=== PATIENT | female | born 2000 | race Caucasian/White ===

== ENCOUNTER 2021-03-09 17:49 | Emergency (ER) | payer BC ==
[2021-03-09] MEDS ORDERED: Ketorolac Tromethamine 30 MG/ML VIAL ONE (18:15)
[2021-03-09] MEDS ORDERED: Famotidine/PF 20 mg/2ml Vial ONE (18:15)
[2021-03-09] MEDS ORDERED: Ondansetron PF 4 MG/2 ML Vial ONE (18:15)
[2021-03-09 19:29] LABS: BHCG - Serum Negative (NEGATIVE); Pregs Control Background? CLEAR/WHITE (CLR/WHITE); Pregs Control Bar Appear? YES (CONTROL BAR)
[2021-03-09 19:31] LABS: #Lymphocytes 0.6 thou/uL (1.20-3.40); #Monocytes 0.2 thou/uL (0.11-0.59); #Neutrophils 7.6 thou/uL (1.40-6.50); %Basophils 0.3 % (0.0-1.0); %Lymphocytes 7.6 % (28.0-48.0); %Monocytes 1.8 % (0.0-4.0); %Neutrophils 90.3 % (31.0-61.0); Hemoglobin 14.8 g/dL (12.0-16.0); Mean Corpuscular HGB CONC 36.5 g/dL (32.0-36.0); Mean Corpuscular Hemoglobin 32.3 pg (25.0-35.0); Mean Corpuscular Volume 88.4 fL (78.0-98.0); Mean Platelet Volume 6.4 fL (7.4-10.4); Platelet Count 379 thou/uL (130-400); RBC Distribution Width 11.1 % (11.5-14.5); Red Blood Cell (RBC) Count 4.57 mill/uL (4.00-5.20); White Blood Cell (WBC) Count 8.4 thou/uL (4.8-10.8)
[2021-03-09 19:53] LABS: ALT (SGPT) 18 U/L (8-55); AST (SGOT) 23 U/L (5-30); Alkaline Phosphatase 70 U/L (40-100); Anion Gap 21 mmol/L (10-20); BUN (Urea Nitrogen) 8 mg/dL (8.4-21.0); Bilirubin, Total 0.5 mg/dL (0.2-1.2); Calc. Creatinine Clearance 0 mL/min (70-130); Calcium 9.8 mg/dL (7.8-10.44); Carbon Dioxide 19 mmol/L (22-29); Chloride 103 mmol/L (98-107); Globulin 3.2 g/dL (2.4-3.5); Glucose 83 mg/dL (70-105); Lipase 6 U/L (8-78); Potassium 3.8 mmol/L (3.5-5.1); Protein, Total 8.2 g/dL (6.0-8.3); Sodium 139 mmol/L (136-145)
== END 2021-03-09 20:36 | disposition home or self-care (01) ==
LOC: ERS 17:49
DX: R11.2 Nausea with vomiting, unspecified (principal)
CPT/HCPCS: 80053; 83690; 84703; 85025; 96374; 96375; J1885; J2405; S0028